=== PATIENT | female | born 1985 | race Caucasian/White ===

== ENCOUNTER 2017-03-09 15:50 | Emergency (ER) | payer MEDICAID ==
[2017-03-09] MEDS ORDERED: ONDANSETRON HCL INJ/PF 4 MG/2 ML SDV IV ONE (16:42)
[2017-03-09] MEDS ORDERED: ACETAMINOPHEN 325 MG TABLET PO ONE (16:42)
[2017-03-09] MEDS ORDERED: NORMAL SALINE 1000 ML 1,000 ML IV ONE (16:42)
--- NOTE | 2017-03-09 16:45 | ER Document Report ---
ED Medical Screen (RME) - General Chief Complaint: Low Back Pain Stated Complaint: BACK PAIN Notes: Patient is complaining of right back and flank pain that comes around to the lower front of her abdomen. This began Saturday while she was vacationing in [place]. She was seen at a hospital there where she had x-rays taken, not a CT scan, and was told she had 2 kidney stones and she was discharged on Flomax and ibuprofen. She began to run a fever yesterday afternoon while traveling back through [place]. Last night, she became dizzy and lightheaded and felt "disoriented". She is nauseated but his only vomited once. No diarrhea. No UTI symptoms. Not sure if she's had a fever, but says she's had significant chills and sweats. No abdominal surgeries. History of depression and anxiety. TRAVEL OUTSIDE OF THE [place] IN LAST 30 DAYS: No - Related Data Allergies/Adverse Reactions: No Known Allergies Allergy (Unverified 03/09/17 16:20) Past Medical History Renal/ Medical History: Denies: Hx Peritoneal Dialysis Physical Exam - Vital signs Vitals: Temp Pulse Resp BP Pulse Ox 103.1 F H 141 H 18 128/64 H 98 03/09/17 16:19 03/09/17 16:19 03/09/17 16:19 03/09/17 16:19 03/09/17 16:19 Course - Vital Signs Vital signs: Temp Pulse Resp BP Pulse Ox 103.1 F H 141 H 18 128/64 H 98 03/09/17 16:19 03/09/17 16:19 03/09/17 16:19 03/09/17 16:19 03/09/17 16:19
[2017-03-09 17:13] LABS: HEMATOCRIT 38.3 % (36.0-47.0); HEMOGLOBIN 12.6 g/dL (12.0-15.5); HGB HCT DIFFERENCE -0.5; MEAN CORPUSCULAR HEMOGLOBIN 29.1 pg (27.0-33.4); MEAN CORPUSCULAR HGB CONC 32.8 g/dL (32.0-36.0); MEAN CORPUSCULAR VOLUME 89 fl (80-97); RED BLOOD COUNT 4.32 10^6/uL (3.72-5.28); RED CELL DISTRIBUTION WIDTH 13.4 % (11.5-14.0); WHITE BLOOD COUNT 20.5 10^3/uL (4.0-10.5)
[2017-03-09 17:22] LABS: APPEARANCE,URINE SLIGHTLY-CLOUDY; BILIRUBIN,URINE NEGATIVE (NEGATIVE); GLUCOSE, URINE NEGATIVE (NEGATIVE); KETONES,URINE NEGATIVE (NEGATIVE); LEUKOCYTE ESTERASE,URINE TRACE (NEGATIVE); NITRITE,URINE NEGATIVE (NEGATIVE); PROTEIN,URINE 30 mg/dL (NEGATIVE); UROBILINOGEN,URINE NEGATIVE mg/dL (<2.0)
[2017-03-09 17:32] LABS: BAND NEUTROPHILS % (MANUAL) 4 % (3-5); BASOPHILS % (MANUAL) 0 % (0-2); EOSINOPHILS % (MANUAL) 0 % (0-6); LYMPHOCYTES % (MANUAL) 6 % (13-45); RBC MORPHOLOGY COMMENT NORMO-CYTIC/CHROMIC; TOTAL CELLS COUNTED 100
[2017-03-09] MEDS ORDERED: CEFTRIAXONE 2 GM/D5W RTU 50 ML IV ONE (17:36)
[2017-03-09 17:46] LABS: ALANINE AMINOTRANSFERASE 33 U/L (9-52); ALBUMIN 4.2 g/dL (3.5-5.0); ALKALINE PHOSPHATASE 78 U/L (38-126); ANION GAP 16 (5-19); ASPARTATE AMINO TRANSFERASE 20 U/L (14-36); BILIRUBIN,DIRECT 0.4 mg/dL (0.0-0.4); BILIRUBIN,TOTAL 0.9 mg/dL (0.2-1.3); BLOOD UREA NITROGEN 10 mg/dL (7-20); CALCIUM 9.2 mg/dL (8.4-10.2); CARBON DIOXIDE 26 mmol/L (22-30); CHLORIDE 98 mmol/L (98-107); CREATININE RESULT 1.14 mg/dL (0.52-1.25); GLUCOSE 107 mg/dL (75-110); LIPASE 11.5 U/L (23-300); POTASSIUM 3.8 mmol/L (3.6-5.0); SODIUM 139.5 mmol/L (137-145); TOTAL PROTEIN 6.9 g/dL (6.3-8.2)
[2017-03-09] MEDS ORDERED: KETOROLAC TROMETHAMINE INJ/PF 30 MG/1 ML SDV IV ONE (17:56)
--- NOTE | 2017-03-09 18:07 | ER Document Report ---
ED General - General Chief Complaint: Low Back Pain Stated Complaint: BACK PAIN Mode of Arrival: Ambulatory Information source: Patient Notes: This is a 31 year old female who is in town visiting family... she is from [place]. She presents with fevers, vomiting, and R flank pain. She states she was seen in [place] for flank pain 3-4 days ago and given new diagnosis of kidney stone based on plain film. Her fever started yesterday, and vomiting and fever today. No prior history of kidney stones. Normal bowel movements. No cough/ congestion. No dysuria, frequency, hematuria. TRAVEL OUTSIDE OF THE [place] IN LAST 30 DAYS: No - Related Data Allergies/Adverse Reactions: No Known Allergies Allergy (Unverified 03/09/17 16:20) Past Medical History - General Information source: Patient - Social History Smoking Status: Unknown if Ever Smoked Frequency of alcohol use: None Drug Abuse: None Lives with: Family Family History: Reviewed & Not Pertinent Patient has suicidal ideation: No Patient has homicidal ideation: No - Medical History Medical History: Negative Renal/ Medical History: Denies: Hx Peritoneal Dialysis Surgical Hx: Negative Review of Systems - Review of Systems Constitutional: See HPI, Chills, Fever EENT: No symptoms reported Cardiovascular: No symptoms reported. denies: Chest pain Respiratory: No symptoms reported. denies: Cough, Short of breath Gastrointestinal: See HPI, Nausea, Vomiting. denies: Abdominal pain, Diarrhea, Constipation, Black stools Genitourinary: See HPI, Flank pain. denies: Burning, Dysuria, Frequency Female Genitourinary: No symptoms reported Musculoskeletal: No symptoms reported Skin: No symptoms reported Hematologic/Lymphatic: No symptoms reported Neurological/Psychological: No symptoms reported Physical Exam - Vital signs Vitals: Temp Pulse Resp BP Pulse Ox 103.1 F H 141 H 18 128/64 H 98 03/09/17 16:19 03/09/17 16:19 03/09/17 16:19 03/09/17 16:19 03/09/17 16:19 - General General appearance: Other - alert, well nourished adult female, pleasant and conversant, nontoxic but appears to not feel well - HEENT Head: Normocephalic, Atraumatic Eyes: Normal Conjunctiva: Normal Cornea: Normal Extraocular movements intact: Yes Pupils: PERRL - Respiratory Respiratory status: No respiratory distress Breath sounds: Normal - Cardiovascular Rhythm: Regular, Tachycardia Heart sounds: Normal auscultation, S1 appreciated, S2 appreciated Murmur: No Normal capillary refill: Yes - Abdominal Distension: No distension Bowel sounds: Normal Tenderness: Other - R CVA TTP. No anterior abdominal TTP. No TTP at McBurney' s.. No: McBurney's point, Berry's sign, Guarding, Rebound - Back Back: CVA tenderness - right - Extremities Notes: No edema. DNVI - Neurological Neuro grossly intact: Yes Cognition: Normal Orientation: AAOx4 - Psychological Associated symptoms: Normal affect, Normal mood - Skin Skin Temperature: Warm Skin Moisture: Dry Skin Color: Normal Course - Re-evaluation Re-evalutation: Patient presents with symptoms concerning for pyelonephritis or infected kidney stone. Antipyretics and IV fluid resuscitation initiated, as well as IV antibiotics. CT demonstrates 6mm distal R ureteral stone with mild hydro and perinephric stranding. HR much improved with IV fluids and fever reduction. Pateint states she is feeling much better, smiling and conversant and well appearing. Discussed with urologist at [facility] Peck who accepts patient in transfer. He recommends addition of a dose of IV gentamicin. Plan is to take her to the operating room for stone removal tonight. 03/09/17 21:30 Transport is here to take the patient to [facility]. Patient is alert and smiling and states she is feeling much better. Her pain is well controlled. She seemed hemodynamically stable and stable for transfer. - Vital Signs Vital signs: Temp Pulse Resp BP Pulse Ox 97.8 F 141 H 17 109/68 98 03/09/17 20:46 03/09/17 16:19 03/09/17 21:01 03/09/17 21:01 03/09/17 21:01 - Laboratory Result Diagrams: 03/09/17 16:50 03/09/17 16:50 Laboratory results interpreted by me: 03/09/17 03/09/17 03/09/17 16:50 16:50 16:50 WBC 20.5 H Seg Neuts % (Manual) 88 H Lymphocytes % (Manual) 6 L Monocytes % (Manual) 2 L Abs Neuts (Manual) 18.9 H Est GFR (Non-Af Amer) 56 L Lipase 11.5 L Urine Protein 30 H Ur Leukocyte Esterase TRACE H - Diagnostic Test Radiology reviewed: Reports reviewed - 6mm R distal ureteral stone with mild hydronephrosis Discharge - Discharge Clinical Impression: Kidney stone on right side, Pyelonephritis Condition: Stable [facility]
[2017-03-09] MEDS ORDERED: GENTAMICIN SULFATE INJ 80 MG/2 ML VIAL IV ONE (20:12)
[2017-03-09 21:33] VITALS: BP 109/68
== END 2017-03-09 21:32 | disposition short-term general hospital (02) ==
LOC: ER 15:50
DX: N20.0 Calculus of kidney (principal); N12 Tubulo-interstitial nephritis, not specified as acute or chronic; M54.5 Low back pain; M54.9 Dorsalgia, unspecified; R50.9 Fever, unspecified; R11.10 Vomiting, unspecified; R10.9 Unspecified abdominal pain
CPT/HCPCS: 36415; 87040; 87086; 83690; 84703; 85025; 87088; 80053; 81001; 83605; 76380; J1580; J1885; J2405; J0696; 96365; 96367; 96375; 99285